=== PATIENT | male | born 1980 | race Caucasian/White ===

== ENCOUNTER 2018-08-04 21:42 | Emergency (ER) | payer SELFPAY ==
[2018-08-04 21:45] VITALS: BP 135/72; PULSE 73; TEMP 36.9; O2SAT 95
--- NOTE | 2018-08-04 21:54 | W.ED.GENAD ---
Discharge Plan Disposition Patient Disposition: HOME Condition: Improving Discharge Details Chief Complaint: Abd Prob Clinical Impression: Right nephrolithiasis, Hydronephrosis, Acute kidney injury Primary Care Provider: PAPO DICKERSON ED Provider: Kiara Goddard Home Meds and New Rx's Prescriptions: No Action No Known Home Meds RF: 0 Discharge Instructions Instructions: Ketorolac (By mouth), Kidney Stones (ED) Additional Instructions: Encourage hydration. Tylenol as needed for discomfort. May use the ketorolac as prescribed to help with pain, please take this only as prescribed and do not take while taking ibuprofen or other anti-inflammatory. You will need follow-up with primary care provider, career services manager will help coordinate follow-up appointment. You have a indeterminate lesion on your liver, please discuss this further with your primary care provider. If you develop fever/chills, increased pain, inability to stay hydrated or other new/worsening symptoms please seek care urgently once again. Discharge Data Discharge Date/Time-TO BE ENTERED AT DEPARTURE: 08/05/18 00:15 Medical Decision Making Patient is a 38 year old male, accompanied by , with c/c of RLQ pain that began suddenly a few hours ago. Since that time, he has had waves of pain, currently rating pain at 6/10. Endorses N/V. No hematemsis. No prevous abdominal surgeries. No fevers/chills. No change in urinary or bowel habits. No pain in testicles but patient reports pain can radiate toward the right testicle when severe. On exam, he appears fairly comfortable. Minimal tenderness on exam over the RLQ. No CVA tenderness. Appears nontoxic. VS WNL. Pain is over McBurney's point but history is more consistent with kidney stone. Has family hx of stones. Will obtain labs, UA, CT of abdomen/pelvis. Discussed with patient who is in agreeent. Patient given Zofran and Morphine. Pain returing, gave Fentanyl. Labs concerning for leukocytosis of 12.14. Creatinine 1.43, do not have a baseline. UA shows trace ketones, negative for blood. No evidence of infection. CT reviewed by myself. Significant for right sided hydronephrosis and kidney stone about to enter bladder. Patient given Toradol, more Zofran. Patient suddenly felt much improved. Seems to fast for medication to be kicking in, this is likely the passing of the stone. Patient kept in the department continues to feel quite well. Patient discharge paco ewdulce Toradol PO in the event of recurrent pain. Discharged home with strainer and collection container. Does not have PCP, have asked career services manager to help facilitate this. Patient was given strict return precautions, in particular signs of obstruction as well as infection. We discussed expected course. Patient does not have insurance at this time, he will contact contact community connections, contact information was given. We will hold off on referral to urology at this time as the patient is currently uninsured and is hoping to keep the bills to minimum. We will have him follow-up with his primary at this point with referral if needed HPI General Mode of arrival: ambulatory. Date/Time Provider Initiated Documentation: 08/04/18 21:54. Limitations to Documentation: no limitations. Information obtained by: patient, family (accompanied by ) and RN notes reviewed. History of Present Illness 38 year old M presents to the emergency department with the chief complaint of RLQ pain, described as moderate, with intensity rated at 6. Quality is described as aching, and is localized to the abdomen. Patient reports no radiation. Patient started experiencing this hour(s) and it has been constant. No relieving factors improve symptom(s), No exacerbating factors reported . Patient notes loss of appetite and nausea/vomiting (vomiting x 2); denies chest pain, cough, diaphoresis, fever/chills, rash, shortness of breath and weakness. Patient did receive the following treatments prior to arrival, none Related Data Home Medications Medication Instructions Recorded Confirmed Unknown [No Known Home Meds] 08/04/18 08/04/18 Allergies Allergy/AdvReac Type Severity Reaction Status Date / Time dexamethasone [From Decadron] Allergy Intermediate Cardiac Unverified 08/04/18 21:50 Dysrythmia General Stated Complaint: Abd Prob MARY BETH: 3 Review of Systems Constitutional Reports as per HPI, Denies chills, Denies fatigue, Denies fever(s) and Denies headache(s) ENT Denies headache(s) Cardiovascular Reports as per HPI, Denies chest pain and Denies dyspnea Respiratory Reports as per HPI, Denies cough and Denies dyspnea Gastrointestinal Reports as per HPI, Reports abdominal pain, Denies melena, Denies change in bowel habits, Denies change in stool character, Reports nausea, Reports vomiting and Denies hematemesis Genitourinary Denies system reviewed and no additional complaints, except as docu (patient denies any change in urinary habits) and Denies hematuria Musculoskeletal Reports as per HPI and Denies back pain Integumentary/Breasts Reports as per HPI and Denies rash Neurologic Reports as per HPI and Denies headache(s) Endocrine Denies fatigue [facility] Social History Smoking/Tobacco Use Status: Never Alcohol Intake: current Alcohol Intake frequency: a few times a week Alcohol type: beer Drug use: Occasionally Substance use type: marijuana Do you feel safe at home: Yes Do you feel safe in your relationship?: Yes Exam Const General: cooperative, healthy appearing, uncomfortable (appears uncomfortable), no acute distress and well developed Nutritional Appearance: well nourished and overweight Orientation: alert and awake HENMT Head: normal to inspection Mouth: moist mucous membranes Resp Effort & Inspection: normal respiratory effort, able to speak in complete sentences and no respiratory distress Auscultation: clear to auscultation bilaterally, no rales, no rhonchi and no wheezes Cardio Rate: regular rate Rhythm: regular rhythm Heart Sounds: S1 normal and S2 normal GI Inspection: no abdominal wall ecchymosis, non-distended, no visible herniation and No visible peristalsis Palpation: soft, no hepatosplenomegaly, no aortic enlargement, not firm, no guarding, no hernias, no pulsatile masses and tender in the RUQ and at McBurney's point; not periumbilically, not suprapubicly, Don's sign negative, obturator sign negative, psoas sign negative and with no rebound tenderness Percussion: normal to percussion Auscultation: normal bowel sounds Back/Spine/Pelvis Back: no CVA tenderness Skin General skin exam: no rashes or lesions noted Trauma: no lacerations or abrasions Neuro General: alert and awake Cognition: normal cognition Speech: speech normal Gait: normal gait Psych Appearance: grossly normal and well kempt Mental Status: mental status grossly normal Speech and Movement: speech and movement normal Course Vital Signs Temperature 36.9 C 08/04/18 21:45 Pulse 73 08/04/18 21:45 Blood Pressure 135/72 08/04/18 21:45 Pulse Oximetry 95 08/04/18 21:45 Temperature 36.9 C 08/04/18 21:45 Temperature Source Skin 08/04/18 21:45 Pulse 73 08/04/18 21:45 Respiratory Effort Non-Labored 08/04/18 21:49 Blood Pressure 135/72 08/04/18 21:45 Blood Pressure Position Sitting 08/04/18 21:45 Pulse Oximetry 95 08/04/18 21:45 Oxygen Delivery Method Room Air 08/04/18 21:45 Oxygen Flow Rate 0 08/04/18 21:45 Pain Level 5 08/04/18 21:45
--- NOTE | 2018-08-04 22:11 | ED.GENADUL_ITS ---
Discharge Plan Disposition Patient Disposition: HOME Condition: Improving Discharge Details Chief Complaint: Abd Prob Clinical Impression: Right nephrolithiasis, Hydronephrosis, Acute kidney injury Primary Care Provider: PAPO DICKERSON ED Provider: Kiara Goddard Home Meds and New Rx's Prescriptions: No Action No Known Home Meds RF: 0 Discharge Instructions Instructions: Ketorolac (By mouth), Kidney Stones (ED) Additional Instructions: Encourage hydration. Tylenol as needed for discomfort. May use the ketorolac as prescribed to help with pain, please take this only as prescribed and do not take while taking ibuprofen or other anti-inflammatory. You will need follow-up with primary care provider, ocular care technician will help coordinate follow-up appointment. You have a indeterminate lesion on your liver, please discuss this further with your primary care provider. If you develop fever/chills, increased pain, inability to stay hydrated or other new/worsening symptoms please seek care urgently once again. Discharge Data Discharge Date/Time-TO BE ENTERED AT DEPARTURE: 08/05/18 00:15 Medical Decision Making Patient is a 38 year old male, accompanied by , with c/c of RLQ pain that began suddenly a few hours ago. Since that time, he has had waves of pain, currently rating pain at 6/10. Endorses N/V. No hematemsis. No prevous abdominal surgeries. No fevers/chills. No change in urinary or bowel habits. No pain in testicles but patient reports pain can radiate toward the right testicle when severe. On exam, he appears fairly comfortable. Minimal tenderness on exam over the RLQ. No CVA tenderness. Appears nontoxic. VS WNL. Pain is over McBurney's point but history is more consistent with kidney stone. Has family hx of stones. Will obtain labs, UA, CT of abdomen/pelvis. Discussed with patient who is in agreeent. Patient given Zofran and Morphine. Pain returing, gave Fentanyl. Labs concerning for leukocytosis of 12.14. Creatinine 1.43, do not have a baseline. UA shows trace ketones, negative for blood. No evidence of infection. CT reviewed by myself. Significant for right sided hydronephrosis and kidney stone about to enter bladder. Patient given Toradol, more Zofran. Patient suddenly felt much improved. Seems to fast for medication to be kicking in, this is likely the passing of the stone. Patient kept in the department continues to feel quite well. Patient discharge paco ewdulce Toradol PO in the event of recurrent pain. Discharged home with strainer and collection container. Does not have PCP, have asked ocular care technician to help facilitate this. Patient was given strict return precautions, in particular signs of obstruction as well as infection. We discussed expected course. Patient does not have insurance at this time, he will contact contact community connections, contact information was given. We will hold off on referral to urology at this time as the patient is currently uninsured and is hoping to keep the bills to minimum. We will have him follow- up with his primary at this point with referral if needed HPI General Mode of arrival: ambulatory . Date/Time Provider Initiated Documentation: 08/04/18 21:54 . Limitations to Documentation: no limitations . Information obtained by: patient, family (accompanied by ) and RN notes reviewed . History of Present Illness 38 year old M presents to the emergency department with the chief complaint of RLQ pain, described as moderate, with intensity rated at 6. Quality is described as aching, and is localized to the abdomen. Patient reports no radiation. Patient started experiencing this hour(s) and it has been constant. No relieving factors improve symptom(s), No exacerbating factors reported . Patient notes loss of appetite and nausea/vomiting (vomiting x 2); denies chest pain, cough, diaphoresis, fever/chills, rash, shortness of breath and weakness. Patient did receive the following treatments prior to arrival, none Related Data Home Medications Medication Instructions Recorded Confirmed Unknown [No Known Home Meds] 08/04/18 08/04/18 Allergies Allergy/AdvReac Type Severity Reaction Status Date / Time dexamethasone [From Decadron] Allergy Intermediate Cardiac Unverified 08/04/18 21:50 Dysrythmia General Stated Complaint: Abd Prob MARY BETH: 3 Review of Systems Constitutional Reports as per HPI, Denies chills, Denies fatigue, Denies fever(s) and Denies headache(s) ENT Denies headache(s) Cardiovascular Reports as per HPI, Denies chest pain and Denies dyspnea Respiratory Reports as per HPI, Denies cough and Denies dyspnea Gastrointestinal Reports as per HPI, Reports abdominal pain, Denies melena, Denies change in bowel habits, Denies change in stool character, Reports nausea, Reports vomiting and Denies hematemesis Genitourinary Denies system reviewed and no additional complaints, except as docu (patient denies any change in urinary habits) and Denies hematuria Musculoskeletal Reports as per HPI and Denies back pain Integumentary/Breasts Reports as per HPI and Denies rash Neurologic Reports as per HPI and Denies headache(s) Endocrine Denies fatigue [facility] Social History Smoking/Tobacco Use Status: Never Alcohol Intake: current Alcohol Intake frequency: a few times a week Alcohol type: beer Drug use: Occasionally Substance use type: marijuana Do you feel safe at home: Yes Do you feel safe in your relationship?: Yes Exam Const General: cooperative, healthy appearing, uncomfortable (appears uncomfortable), no acute distress and well developed Nutritional Appearance: well nourished and overweight Orientation: alert and awake HENMT Head: normal to inspection Mouth: moist mucous membranes Resp Effort & Inspection: normal respiratory effort, able to speak in complete sentences and no respiratory distress Auscultation: clear to auscultation bilaterally, no rales, no rhonchi and no wheezes Cardio Rate: regular rate Rhythm: regular rhythm Heart Sounds: S1 normal and S2 normal GI Inspection: no abdominal wall ecchymosis, non-distended, no visible herniation and No visible peristalsis Palpation: soft, no hepatosplenomegaly, no aortic enlargement, not firm, no guarding, no hernias, no pulsatile masses and tender in the RUQ and at McBurney's point; not periumbilically, not suprapubicly, Don's sign negative, obturator sign negative, psoas sign negative and with no rebound tenderness Percussion: normal to percussion Auscultation: normal bowel sounds Back/Spine/Pelvis Back: no CVA tenderness Skin General skin exam: no rashes or lesions noted Trauma: no lacerations or abrasions Neuro General: alert and awake Cognition: normal cognition Speech: speech normal Gait: normal gait Psych Appearance: grossly normal and well kempt Mental Status: mental status grossly normal Speech and Movement: speech and movement normal Course Vital Signs Temperature 36.9 C 08/04/18 21:45 Pulse 73 08/04/18 21:45 Blood Pressure 135/72 08/04/18 21:45 Pulse Oximetry 95 08/04/18 21:45 Temperature 36.9 C 08/04/18 21:45 Temperature Source Skin 08/04/18 21:45 Pulse 73 08/04/18 21:45 Respiratory Effort Non-Labored 08/04/18 21:49 Blood Pressure 135/72 08/04/18 21:45 Blood Pressure Position Sitting 08/04/18 21:45 Pulse Oximetry 95 08/04/18 21:45 Oxygen Delivery Method Room Air 08/04/18 21:45 Oxygen Flow Rate 0 08/04/18 21:45 Pain Level 5 08/04/18 21:45
[2018-08-04] MEDS: Normal Saline 1,000 ML 1000 ML IV (22:17)
[2018-08-04] MEDS: MORPHine 10 MG/ML VIAL 2 MG IVP (22:18)
[2018-08-04] MEDS: Ondansetron 4 MG/2 ML VIAL IVP ×2 (22:18→23:06)
[2018-08-04 22:28] LABS: Abs Immature Grans 0.02 k/cumm (0.0-0.09); Absolute Basophil Count 0.02 k/cumm (0.0-0.2); Absolute Lymphocyte Count 1.68 k/cumm (1.2-3.4); Absolute Monocyte Count 0.91 k/cumm (0.11-0.7); Absolute Neutrophil Count 9.48 k/cumm (1.2-6.7); Basophils % 0.2; Eosinophils % 0.2; HCT 41.1 % (40.0-50.0); HGB 14.3 g/dL (13.5-17.5); Immature Grans % 0.2; Lymphocytes % 13.8; Mean Corp. HGB Concentration 34.8 g/dL (32.0-36.0); Mean Corpuscular Hemoglobin 29.7 pg (27.0-33.0); Mean Corpuscular Volume 85.3 fL (80-95); Mean Platelet Volume 10.3 fL (8.0-11.0); Monocytes % 7.5; Neutrophils % 78.1; Platelet Count 201 x1000/uL (130-400); RBC 4.82 m/cumm (4.50-6.00); RBC Distribution Width 12.1 % (11.8-14.1); White Blood Cell Count 12.14 k/cumm (4.4-10.8)
[2018-08-04] MEDS: fentaNYL 100 MCG/2 ML VIAL 50 MCG IVP (22:40)
[2018-08-04 22:41] LABS: ALT 37 U/L (12-78); AST 18 U/L (15-37); Alkaline Phosphatase 71 U/L (46-116); Anion Gap 11.8 mmol/L (3-11); BUN 18 mg/dL (7-18); Bilirubin, Total 0.3 mg/dL (0.2-1.0); CO2 24.2 mmol/L (21.0-32.0); CREATININE 1.43 mg/dL (0.70-1.30); Calcium 9.1 mg/dL (8.5-10.1); Chloride 102 mmol/L (98-107); Estimated GFR 55.05 (mL/min/1.73m2); Glucose 102 mg/dL (70-100); Magnesium 2.1 mg/dL (1.8-2.4); Potassium 3.5 mmol/L (3.5-5.1); Sodium 138 mmol/L (136-145); Total Protein 7.2 g/dL (6.4-8.2); Troponin I < 0.02 ng/mL (0.00-0.06)
[2018-08-04 22:43] LABS: Absolute Eosinophil Count 0.02 k/cumm (0.0-0.7)
--- NOTE | 2018-08-04 22:58 | DI.CT_ITS ---
SYMPTOM/DIAGNOSIS: RLQ PAIN ABDOMEN AND PELVIC CT: CT examination of the abdomen and pelvis was performed with a bolus infusion of 100 cc's of Omnipaque 350. Images obtained through the lung bases are unremarkable. There is an indeterminate, low attenuation right hepatic lobe lesion measuring about 14 mm. in greatest diameter. Ultrasound correlation suggested for further evaluation. Otherwise liver, spleen and pancreas are unremarkable. No biliary dilatation is seen. Appendix appears normal. No evidence of diverticulitis or bowel obstruction. No significant abdominal wall hernia is seen. No abdominal or pelvic adenopathy. Abdominal aorta is of normal diameter and no major vascular abnormality is seen. Adrenals appear normal bilaterally. There is a non obstructing small left mid pole renal calculus. There is an obstructing calculus at the ureterovesical junction on the right measuring about 4 mm. in diameter with resultant moderate hydroureter and hydronephrosis on the right. CONCLUSION: 1. Right UVJ obstructing 4 mm. calculus. 2. Non obstructing left renal calculus. 3. Low attenuation indeterminate right hepatic lobe lesion, 14 mm. in diameter, correlation with hepatic ultrasound suggested.
[2018-08-04] MEDS: Omnipaque 350 MG/ML 100 ML BTL IJ (23:00)
[2018-08-04] MEDS: Ketorolac 30 MG/ML VIAL IVP (23:05)
[2018-08-04 23:29] LABS: Bilirubin Negative (Negative); Blood Negative (Negative); Clarity Clear; Glucose Negative (Negative); Ketones Trace mg/dL (Negative); Leukocyte Esterase Negative (Negative); Nitrite Negative (Negative); Specific Gravity 1.025 (1.005-1.025); Urobilinogen 0.2 EU/dL (Up TO 0.2); pH 5.5 (5-8)
--- NOTE | 2018-08-04 23:52 | DI.VRAD_ITS ---
EXAM: CT Abdomen and Pelvis With Contrast EXAM DATE/TIME: 08/04/2018 10:05 PM CLINICAL HISTORY: 38 years old, male; Abdominal pain; Localized; Right lower quadrant (rlq) TECHNIQUE: Imaging protocol: Axial computed tomography images of the abdomen and pelvis with intravenous contrast. Coronal and sagittal reformatted images were created and reviewed. Contrast material: OMNIPAQUE 350; Contrast volume: 100 ml; Contrast route: IV; COMPARISON: No relevant prior studies available. FINDINGS: ABDOMEN: Liver: There is a low density right lobe hepatic lesion axial image 20, 11 mm indeterminate. Gallbladder and bile ducts: Normal. No calcified stones. No ductal dilation. Pancreas: Normal. No ductal dilation. Spleen: Normal. No splenomegaly. Adrenals: Normal. No mass. Kidneys and ureters: There is slight reduced perfusion to the right kidney with moderate hydronephrosis and hydroureter. There is a right UVJ obstructing calculus series 4 image 80, 4 mm. Stomach and bowel: Normal. No obstruction. No mucosal thickening. Appendix: No evidence of appendicitis. PELVIS: Bladder: Unremarkable as visualized. Reproductive: Unremarkable as visualized. ABDOMEN and PELVIS: Intraperitoneal space: Normal. No free air. No significant fluid collection. Bones/joints: No acute fracture. No dislocation. Soft tissues: Unremarkable. Vasculature: Normal. No abdominal aortic aneurysm. Lymph nodes: Normal. No enlarged lymph nodes. IMPRESSION: Right UVJ obstructing calculus. COMMENT: Preliminary interpretation is based on receipt of 322 image(s). A final report will be issued subsequently. Dictated and Authenticated by: Eladia Alvarado MD. Ordering:CRISTOPHER Craig MD
[2018-08-05] MEDS: Ketorolac 10 MG TAB 20 MG PO (00:32)
[2018-08-05 00:37] VITALS: BP 130/79; PULSE 80; RESP 16; TEMP 36.8; O2SAT 98
--- NOTE | 2018-08-08 15:39 | PDOC.ERCMPRO ---
Care Management Progress Note 08/08-Incidental finding on US per radiology. Patient does have a PCP, Edward Baez at [facility]. Called [facility] and spoke with Lili. Lili confirmed he was a Edward Baez patient and requested this CM fax the reports to [phone] for which was done. Called Cyndi and left a voice message stating that he had an incidental finding on US and needed to call Edward Baez office for appt. Left [facility] contact information.
--- NOTE | 2018-08-08 15:42 | CMPROGNOTE_ITS ---
Care Management Progress Note 08/08-Incidental finding on US per radiology. Patient does have a PCP, Edward Baez at [facility]. Called [facility] and spoke with Lili. Lili confirmed he was a Edward Baez patient and requested this CM fax the reports to [phone] for which was done. Called Cyndi and left a voice message stating that he had an incidental finding on US and needed to call Edward Baez office for appt. Left [facility] contact information.
== END 2018-08-05 00:15 | disposition home or self-care (01) ==
PROVIDERS: Emergency Provider Physician Assistant; PCP Family Medicine
DX: N13.0 Hydronephrosis with ureteropelvic junction obstruction (principal); N17.9 Acute kidney failure, unspecified
CPT/HCPCS: 36415; 80053; 96361; 96374; 96375; 96376; 99285; 74177; 81003; 83735; 84484; 85025; 99284; J1885; J2270; J2405; J3010; J3490

== ENCOUNTER 2022-02-26 15:54 | Outpatient (REF) | payer MEDICAID, SELFPAY ==
[2022-02-26 18:20] LABS: Abs Immature Grans 0.02 10^3/uL (0.0-0.06); Absolute Basophil Count 0.04 10^3/uL (0.0-0.2); Absolute Eosinophil Count 0.05 10^3/uL (0.0-0.7); Absolute Lymphocyte Count 1.73 10^3/uL (1.2-3.4); Absolute Monocyte Count 0.54 10^3/uL (0.1-0.8); Absolute Neutrophil Count 3.39 10^3/uL (1.2-6.7); Basophils % 0.7; Eosinophils % 0.9; HCT 49.4 % (40.0-50.0); HGB 16.1 g/dL (13.5-17.5); Immature Grans % 0.3; MCH 28.1 pg (27.0-33.0); MCHC 32.6 % (32.0-36.0); MCV 86 fL (80-95); MPV 10.4 fL (8.0-11.0); Monocytes % 9.4; Neutrophils % 58.7; Platelet Count 282 10^3/uL (130-400); RBC 5.72 10^6/uL (4.36-5.78); RDW 12.2 % (11.8-14.1); RDW-SD 38.5 fL; WBC 5.77 10^3/uL (4.4-10.8)
[2022-02-26 18:38] LABS: ALT 29 U/L (16-63); AST 10 U/L (15-37); Albumin 4.6 g/dL (3.4-5.0); Alkaline Phosphatase 79 U/L (46-116); Anion Gap 8.7 mmol/L (3-11); BUN 11 mg/dL (7-18); Bilirubin, Total 0.4 mg/dL (0.2-1.0); CO2 28.3 mmol/L (21.0-32.0); CREATININE 1.1 mg/dL (0.70-1.30); Calcium 9.6 mg/dL (8.5-10.1); Chloride 103 mmol/L (98-107); Estimated GFR 85.95 (mL/min/1.73m2); Glucose 86 mg/dL (74-106); Lipase 88 U/L (73-393); Potassium 4.6 mmol/L (3.5-5.1); Sodium 140 mmol/L (136-145); Total Protein 8.1 g/dL (6.4-8.2)
== END 2022-02-26 15:55 | disposition home or self-care (01) ==
LOC: LBN 15:54
PROVIDERS: PCP Family Medicine; Visit Provider Physician Assistant Medical
DX: R10.11 Right upper quadrant pain (principal)
CPT/HCPCS: 80053; 83690; 85025

== ENCOUNTER → 2022-03-02 01:23 | Outpatient (CLI) | payer MEDICAID, SELFPAY ==
--- NOTE | 2022-03-02 | DI.US_ITS ---
Exam(s) US ABDOMEN EXAM: US ABDOMEN CLINICAL HISTORY: RUQ ABD PAIN AFTER EATING, R10.11,? BILIARY INVOLVEMENT TECHNIQUE: Ultrasound of complete upper abdomen performed using standard protocol. COMPARISON: CT CT ABDOMEN PELVIS W from 08/04/2018 FINDINGS: There is no ascites evident. LIVER: There is a solitary uniformly hyper echo it peripherally located nodule in the right hepatic l obe measuring approximately 1.5 x 1.6 x 1.7 cm and correspond to the finding described on the prior C T scan of July 2018. This has appearance of probable benign hemangioma. There are no other focal hep atic findings. GALLBLADDER/BILIARY: There are no gallstones. No gallbladder wall edema nor pericholecystic fluid. The common hepatic duct isnot dilated, measuring 3-4mm at the level of baltazar hepatis. PANCREAS: There is no evidence of pancreatic mass nor dilatation of the pancreatic duct. SPLEEN: The spleen is not enlarged and there are no intrasplenic lesions evident. KIDNEYS:Kidneys exhibit normal size with no evidence of solid mass, calculus, nor hydronephrosis. No cortical cysts evident. ABDOMINAL AORTA: There is no evidence of abdominal aortic aneurysm. IVC: Normal diameter where visualized. IMPRESSION: 1. No evidence of cholelithiasis nor dilatation of the biliary tree. 2. There is a solitary uniformly hyperechoic nodule in the right hepatic lobe measuring 15 x 16 x 17 millimeters and corresponding to the finding described on the prior CT scan of July 2018. This has a ppearance of a benign hemangioma. Appropriate follow-up would be repeat ultrasound in 1 year, bhavna reddy if clinically indicated. 3. There is no ascites. DATA REPOSITORY:
== END ==
PROVIDERS: PCP Family Medicine; Visit Provider Physician Assistant Medical
DX: R10.11 Right upper quadrant pain (principal); R93.2 Abnormal findings on diagnostic imaging of liver and biliary tract
CPT/HCPCS: 76700